=== PATIENT | female | born 1970 | race Hispanic/Latino ===

== ENCOUNTER 2022-02-10 13:22 | Emergency (ER) | payer OTHER ==
[~2022-02-10] VITALS: Ht 147.3 cm; Wt 72.6 kg
[2022-02-10] MEDS ORDERED: ASPIRIN 325 MG TAB PO ONE (14:00)
[2022-02-10] MEDS ORDERED: SODIUM CHLORIDE 0.9% 1000ML 1,000 ML IV ONE ×2 (14:30→15:15)
[2022-02-10] MEDS ORDERED: SODIUM CHLORIDE 0.9% 1000ML 2,000 ML ONE (14:35)
[2022-02-10] MEDS ORDERED: ONDANSETRON HCL INJ 2MG/ML 2ML 2 MG/ML VIAL IV STA ×2 (14:35→15:37)
[2022-02-10] MEDS ORDERED: KETOROLAC TROMETHAMINE 30 MG/ML VIAL IV STA (14:35)
[2022-02-10] MEDS ORDERED: ONDANSETRON HCL INJ 2MG/ML 2ML 2 MG/ML VIAL ONE ×2 (15:22→15:48)
[2022-02-10] MEDS ORDERED: KETOROLAC TROMETHAMINE 30 MG/ML VIAL ONE (15:22)
[2022-02-10] MEDS ORDERED: ONDANSETRON ODT4 MG PO (15:46)
[2022-02-10 16:23] VITALS: BP 125/86
[2022-02-11] MEDS ORDERED: PROMETHAZINE HC25 M1 PO (16:38)
[2022-02-11] MEDS ORDERED: DIAZEPAM5 MG PO ×2 (16:40→16:42)
== END 2022-02-10 16:23 | disposition home or self-care (01) ==
LOC: FSED 13:55 → MERGE 13:55 → FSED 16:23
DX: R42 Dizziness and giddiness (principal); E86.0 Dehydration; E86.1 Hypovolemia; R11.2 Nausea with vomiting, unspecified; R51.9 Headache, unspecified; E11.65 Type 2 diabetes mellitus with hyperglycemia; I10 Essential (primary) hypertension
CPT/HCPCS: 80053; 81025; 85025; 93005; 96374; 96375; 96376; 99283; J1885; J2405; J7030

== ENCOUNTER 2022-02-11 12:56 | Emergency (ER) | payer OTHER ==
[~2022-02-11] VITALS: Ht 147.3 cm; Wt 72.6 kg
[~2022-02-11 12:56] MED LIST: ONDANSETRON ODT4 MG PO
[2022-02-11] MEDS ORDERED: PROMETHAZINE 25MG/ NS 50ML (IV) IV ONE (14:00)
[2022-02-11] MEDS ORDERED: SODIUM CHLORIDE 0.9% 1000ML 1,000 ML IV SCH (14:00)
[2022-02-11] MEDS ORDERED: FAMOTIDINE 20 MG/2 ML VIAL IV STA (14:00)
[2022-02-11] MEDS ORDERED: PROMETHAZINE HCL (IM) 25 MG/ML VIAL IM ONE (14:04)
[2022-02-11] MEDS ORDERED: FAMOTIDINE 20 MG/2 ML VIAL IV ONE (14:05)
[2022-02-11] MEDS ORDERED: MECLIZINE HCL 12.5 MG TAB ONE (14:06)
[2022-02-11] MEDS ORDERED: MECLIZINE HCL 12.5 MG TAB PO ONE (14:15)
[2022-02-11] MEDS ORDERED: DIAZEPAM INJ 5 MG/ML 2 ML IV ONE ×2 (15:30→15:45)
[2022-02-11] MEDS ORDERED: DIAZEPAM INJ 5 MG/ML 2 ML ONE (15:45)
[2022-02-11] MEDS ORDERED: PROMETHAZINE HC25 M1 PO (16:38)
[2022-02-11] MEDS ORDERED: DIAZEPAM5 MG PO ×2 (16:40→16:42)
[2022-02-11 17:14] VITALS: BP 139/71
== END 2022-02-11 17:16 | disposition home or self-care (01) ==
LOC: MERGE 13:16 → FSED 13:16
DX: R42 Dizziness and giddiness (principal); R11.2 Nausea with vomiting, unspecified; R51.9 Headache, unspecified; I10 Essential (primary) hypertension; E11.9 Type 2 diabetes mellitus without complications
CPT/HCPCS: 70450; 71046; 74177; 80053; 81003; 85025; 96374; 96376; 99284; J2550; J3360